=== PATIENT | male | born 1955 ===

== ENCOUNTER 2017-01-12 13:50 | Emergency (ER) | payer MEDICARE ==
[2017-01-12 13:57] VITALS: BP 92/53; PULSE 72; RESP 16; TEMP 98.3; O2SAT 100
--- NOTE | 2017-01-12 15:38 | ED PDOC ---
HPI: Altered Mental Status Time Seen by Provider: 01/12/17 14:07 Chief Complaint (Nursing): Weakness/Neurological Deficit History Per: Patient, Family History/Exam Limitations: Clinical Condition Onset/Duration Of Symptoms: Gradual (today) Onset Of Symptoms: Cannot Confirm Onset Current Symptoms Are (Timing): Still Present Description Of Symptoms: Not At Baseline Usual Baseline: Alert Confused, Non-verbal, Amb W/Assist Exacerbating Factor(s): Unknown Use Of Anticoag/Antiplatlets: No Additional History Per: Patient, Family Additional Complaint(s): To ED via BLS for evaluation of generalized weakness. Patient with history of Parkinson's. As per EMS, family stated patient is normally able to ambulate but unable today. long hx of chronic parkinsons Past Medical History Reviewed: Historical Data, Nursing Documentation, Vital Signs Vital Signs: Last Vital Signs Temp 98.3 F 01/12/17 13:52 Pulse 72 01/12/17 13:52 Resp 16 01/12/17 13:52 BP 92/53 L 01/12/17 13:52 Pulse Ox 100 01/12/17 13:52 - Medical History PMH: Parkinson's Disease - Family History Family History: States: Unknown Family Hx - Living Arrangements Living Arrangements: With Family - Social History Current smoker - smoking cessation education provided: No - Home Medications Home Medications: Ambulatory Orders Medication Instructions Recorded Carbidopa/Levodopa 1 tab PO QID 08/24/16 [Carbidopa/Levodopa 25 mg-250 mg] Clonazepam [Klonopin] 0.5 mg PO BID 08/24/16 Mv,Min10/Folic Acid/D3/Ala/Lut 1 tab PO DAILY 08/24/16 [Strovite One Caplet] - Allergies Allergies/Adverse Reactions: Allergies Allergy/AdvReac Type Severity Reaction Status Date / Time No Known Allergies Allergy Verified 01/12/17 13:52 Review of Systems Review Of Systems: ROS cannot be obtained secondary to pt's inabilty to answer questions. Neurological: Positive for: Weakness Physical Exam - Reviewed Nursing Documentation Reviewed: Yes Vital Signs Reviewed: Yes - Physical Exam Appears: Positive for: Uncomfortable Head Exam: Positive for: ATRAUMATIC, NORMAL INSPECTION, NORMOCEPHALIC Skin: Positive for: Normal Color, Warm, Dry Eye Exam: Positive for: Normal appearance, EOMI, PERRL. Negative for: Periorbital swelling, Periorbital tenderness, Conjunctival injection ENT: Positive for: Pharynx Is (clear,mmm) Neck: Positive for: Normal, Painless ROM, Supple. Negative for: Decreased ROM, Limited ROM, Trachea Midline, Pain On Movement Of Neck Cardiovascular/Chest: Positive for: Regular Rate, Rhythm, Chest Non Tender. Negative for: Edema, Gallop, Murmur, Bradycardia, Tachycardia Respiratory: Positive for: Normal Breath Sounds. Negative for: Decreased Breath Sounds, Accessory Muscle Use, Crackles, Rales, Rhonchi, Stridor, Wheezing , Respiratory Distress Pulses-Radial (L): 2+ Pulses-Radial (R): 2+ Gastrointestinal/Abdominal: Positive for: Normal Exam, Bowel Sounds, Soft. Negative for: Tenderness Back: Positive for: Normal Inspection. Negative for: L CVA Tenderness, R CVA Tenderness, Vertebral Tenderness Extremity: Positive for: Normal ROM. Negative for: Tenderness, Pedal Edema, Calf Tenderness, Deformity, Swelling Neurologic/Psych: Positive for: Alert, assembler latches and springs II-XII, Motor/Sensory Deficits ( strength 5/5 in all extremities ). Negative for: Oriented, Aphasia, Facial Droop - Laboratory Results Result Diagrams: 01/12/17 15:10 01/12/17 15:10 - ECG ECG: Positive for: Interpreted By Mn ECG Rhythm: Positive for: Normal QRS, Normal ST Segment, Sinus Rhythm (rate of 80). Negative for: ST/T Changes O2 Sat by Pulse Oximetry: 100 Pulse Ox Interpretation: Normal - Radiology X-Ray: Interpreted by Mn X-Ray Interpretation: No Acute Disease - Progress ED Course And Treament: pt now ambulating throughout the ed. no compalints ct scan nml will d/c home to care of family Re-evaluation Time: 18:16 Condition: Improved Disposition - Clinical Impression Clinical Impression: Episode of generalized weakness Counseled Patient/Family Regarding: Studies Performed, Diagnosis, Need For Followup - Disposition Referrals: Kale Muniz MD [Family Provider] - (2 to 3 days) Disposition: Routine/Home Disposition Time: 18:22 Condition: GOOD Instructions: Weakness (ED)
[2017-01-12 15:43] LABS: BASO % 0.7 % (0.0-2.0); EOS # 0.1 K/uL (0.0-0.7); EOS % 1.3 % (0.0-4.0); HEMATOCRIT 27.6 % (35.0-51.0); LYMPH # 1.7 K/uL (1.0-4.3); LYMPH % 24.3 % (20.0-40.0); MEAN CELL VOLUME 79.6 fl (80.0-94.0); MEAN CORPUSCULAR HEMOGLOBIN 27.6 pg (27.0-31.0); MEAN CORPUSCULAR HGB CONC 34.7 g/dL (33.0-37.0); MEAN PLATELET VOLUME 11.7 fl (7.2-11.7); MONO # 0.4 K/uL (0.0-0.8); MONO % 6.3 % (0.0-10.0); NEUT # 4.6 K/uL (1.8-7.0); NEUT % 67.4 % (50.0-75.0); NRBC % 0.1 % (0.0-0.0); RED CELL DISTRIBUTION WIDTH 14.9 % (11.5-14.5); WHITE BLOOD COUNT 6.8 K/uL (4.8-10.8)
[2017-01-12 16:08] LABS: PARTIAL THROMBOPLASTIN TIME 29.4 Seconds (25.6-37.1)
[2017-01-12 16:29] LABS: ALB/GLOB RATIO 1.3 (1.0-2.1); ALCOHOL SERUM < 10 mg/dl (0-10); ALKALINE PHOSPHATASE 61 U/L (38-126); ALT/SGPT 25 U/L (21-72); AST/SGOT 28 U/L (17-59); BILIRUBIN,TOTAL 0.7 mg/dl (0.2-1.3); BLOOD UREA NITROGEN 23 mg/dl (9-20); CALCIUM 8.8 mg/dL (8.4-10.2); CARBON DIOXIDE 28 mmol/L (22-30); CHLORIDE 101 mmol/L (98-107); GFR AFRICAN-AMERICAN > 60; GLUCOSE,RANDOM 110 mg/dL (75-110); LIPASE 67 U/L (23-300); POTASSIUM 4.4 MMOL/L (3.6-5.0); SODIUM 141 mmol/l (132-148); TOTAL PROTEIN 7.5 G/DL (6.3-8.2)
[2017-01-12 17:08] LABS: RBC URINE 2 /hpf (0-3); URINE BILIRUBIN NEGATIVE (NEGATIVE); URINE BLOOD NEGATIVE (NEGATIVE); URINE COLOR YELLOW (YELLOW); URINE GLUCOSE (UA) NEG (Normal); URINE KETONE TRACE mg/dL (NEGATIVE); URINE LEUKOCYTE ESTERASE NEG Leu/uL (Negative); URINE PROTEIN 30 mg/dL (NEGATIVE); URINE UROBILINOGEN 0.2-1.0 mg/dL (0.2-1.0); WBC URINE 1 /hpf (0-5)
--- NOTE | 2017-01-12 17:50 | RAD ---
PROCEDURE: CHEST RADIOGRAPH, 1 VIEW HISTORY: ams COMPARISON: Comparison chest 08/24/2016 FINDINGS: LUNGS: Poor inspiration with low lung volumes, mild crowded bronchovascular markings and mild bibasilar atelectasis. There is a small elliptical shaped density right lung base measuring approximately 7 mm x 3 mm. This could represent vessel on end artifact and/or some discoid type atelectasis. Recommend repeat erect PA and lateral views with proper inspiration to confirm and exclude parenchymal nodule. Alternately, followup the CT scan would be more sensitive. . A discrepancy was placed in a physician tracking note for follow-up. PLEURA: No pneumothorax or pleural fluid seen. CARDIOVASCULAR: Normal. OSSEOUS STRUCTURES: No significant abnormalities. VISUALIZED UPPER ABDOMEN: Normal. OTHER FINDINGS: None. IMPRESSION: Poor inspiration with low lung volumes, mild crowded bronchovascular markings and mild bibasilar atelectasis. There is a small elliptical shaped density right lung base measuring approximately 7 mm x 3 mm. This could represent vessel on end artifact and/or some discoid type atelectasis. Recommend repeat erect PA and lateral views with proper inspiration to confirm and exclude parenchymal nodule. Alternately, followup the CT scan would be more sensitive. . A discrepancy was placed in a physician tracking note for follow-up.
--- NOTE | 2017-01-14 01:25 | CARD ---
APPROVED REPORT EKG Measurement Heart [id number] <Conclusion> Normal sinus rhythm Normal ECG
== END 2017-01-12 22:44 | disposition home or self-care (01) ==
LOC: H.ER 13:50
DX: G20 Parkinson's disease (principal); R53.1 Weakness
CPT/HCPCS: 71010; 80053; 81003; 83690; 84484; 85025; 85610; 85730; 87086; 93005; 99283; G0480

== ENCOUNTER 2017-04-19 14:07 | Emergency (ER) | payer MEDICARE ==
[2017-04-19 14:13] VITALS: TEMP 97.8
--- NOTE | 2017-04-19 14:49 | ED PDOC ---
Lower Extremity Pain/Injury Time Seen by Provider: 04/19/17 14:47 Chief Complaint (Nursing): Lower Extremity Problem/Injury Chief Complaint (Provider): lower extremity edema History Per: Patient (61 y/o male bedbound secondary to parkinson's disease here with complaint of lower extremity edema ongoing. Family has been unable to arrange for transport to Dr. Muniz (PCP) office. ) Past Medical History Reviewed: Historical Data, Nursing Documentation, Vital Signs Vital Signs: Last Vital Signs Temp 97.8 F 04/19/17 14:11 Pulse 86 04/19/17 14:11 Resp 18 04/19/17 14:11 BP 112/69 04/19/17 14:11 Pulse Ox 98 04/19/17 14:11 - Medical History PMH: Parkinson's Disease - Family History Family History: States: Unknown Family Hx - Home Medications Home Medications: Ambulatory Orders Medication Instructions Recorded Carbidopa/Levodopa 1 tab PO QID 08/24/16 [Carbidopa/Levodopa 25 mg-250 mg] Clonazepam [Klonopin] 0.5 mg PO BID PRN 08/24/16 - Allergies Allergies/Adverse Reactions: Allergies Allergy/AdvReac Type Severity Reaction Status Date / Time No Known Allergies Allergy Verified 01/12/17 13:52 Review of Systems ROS Statement: Except As Marked, All Systems Reviewed And Found Negative Musculoskeletal: Positive for: Leg Pain Physical Exam - Reviewed Nursing Documentation Reviewed: Yes Vital Signs Reviewed: Yes - Physical Exam Appears: Positive for: Well, Non-toxic, No Acute Distress Head Exam: Positive for: ATRAUMATIC, NORMAL INSPECTION, NORMOCEPHALIC Skin: Positive for: Normal Color, Warm, DRY Eye Exam: Positive for: EOMI, Normal appearance, PERRL ENT: Positive for: Normal ENT Inspection Neck: Positive for: Normal, Painless ROM Cardiovascular/Chest: Positive for: Regular Rate, Rhythm Respiratory: Positive for: CNT, Normal Breath Sounds Gastrointestinal/Abdominal: Positive for: Normal Exam, Bowel Sounds, Soft Back: Positive for: Normal Inspection Extremity: Positive for: Normal ROM, Pedal Edema, Swelling Neurologic/Psych: Positive for: Alert, Oriented - Laboratory Results Result Diagrams: 04/19/17 15:16 04/19/17 15:16 - ECG ECG Rhythm: Positive for: Sinus Rhythm (nsr 89bpm no ectopy; no acute changes) O2 Sat by Pulse Oximetry: 98 - Radiology X-Ray: Viewed By Me (nad) - Progress ED Course And Treament: d/w dr. muniz requests hospitalist admission for evaluation of symptoms d/w Dr. Hightower. Will diuresis patient during obs stay in hospital. Disposition - Clinical Impression Clinical Impression: Lower extremity edema, Fluid overload - Patient ED Disposition Is Patient to be Admitted: Yes - Disposition Disposition Time: 17:42 Condition: FAIR Forms: [facility] (Ukrainian) - Pt Status Changed To: Hospital Disposition Of: Observation
[2017-04-19 15:40] LABS: BASO % 0.5 % (0.0-2.0); EOS # 0.1 K/uL (0.0-0.7); EOS % 1.2 % (0.0-4.0); HEMATOCRIT 31.5 % (35.0-51.0); LYMPH # 1.5 K/uL (1.0-4.3); LYMPH % 18.8 % (20.0-40.0); MEAN CORPUSCULAR HEMOGLOBIN 25.3 pg (27.0-31.0); MEAN CORPUSCULAR HGB CONC 33.3 g/dL (33.0-37.0); MONO % 12.3 % (0.0-10.0); NEUT # 5.3 K/uL (1.8-7.0); NEUT % 67.2 % (50.0-75.0); NRBC % 0.4 % (0.0-0.0); RED CELL DISTRIBUTION WIDTH 17.8 % (11.5-14.5); WHITE BLOOD COUNT 7.9 K/uL (4.8-10.8)
[2017-04-19 16:02] LABS: ALKALINE PHOSPHATASE 105 U/L (38-126); ALT/SGPT 40 U/L (21-72); AST/SGOT 51 U/L (17-59); BLOOD UREA NITROGEN 16 mg/dl (9-20); CALCIUM 9.1 mg/dL (8.4-10.2); CARBON DIOXIDE 27 mmol/L (22-30); CHLORIDE 100 mmol/L (98-107); GFR AFRICAN-AMERICAN > 60; GLUCOSE,RANDOM 71 mg/dL (75-110); POTASSIUM 4.1 MMOL/L (3.6-5.0); SODIUM 143 mmol/l (132-148); TOTAL PROTEIN 7.5 G/DL (6.3-8.2)
--- NOTE | 2017-04-19 16:36 | RAD ---
HISTORY: routine COMPARISON: No prior. FINDINGS: LUNGS: Diminished history volume. No acute infiltrate bilaterally nevertheless. PLEURA: No significant pleural effusion identified, no pneumothorax apparent. CARDIOVASCULAR: Cardiac silhouette not significantly changed in size. OSSEOUS STRUCTURES: No significant abnormalities. VISUALIZED UPPER ABDOMEN: Normal. OTHER FINDINGS: None. IMPRESSION: Diminished inspiratory effort. No acute infiltrate or pleural effusion bilaterally.
[2017-04-19 16:57] VITALS: RESP 16
--- NOTE | 2017-04-19 17:38 | US ---
PROCEDURE: Bilateral lower extremity venous duplex Doppler. HISTORY: r/o dvt COMPARISON: None available. TECHNIQUE: Bilateral common femoral, superficial femoral, popliteal and posterior tibial veins were evaluated. Flow was assessed with color Doppler, compressibility, assessment of phasic flow and augmentation response. FINDINGS: COMMON FEMORAL VEIN: Right CFV: Unremarkable. Left CFV: Unremarkable. SUPERFICIAL FEMORAL VEIN: Right SFV: Unremarkable. Left SFV: Unremarkable. POPLITEAL VEIN: Right Popliteal: Unremarkable. Left Popliteal: Unremarkable. POSTERIOR TIBIAL VEIN: Right PTV: Unremarkable. Left PTV: Unremarkable. OTHER FINDINGS: None. IMPRESSION: No evidence of deep venous thrombosis. .
--- NOTE | 2017-04-19 19:18 | CP.PCM.CON ---
History of Present Illness - History of Present Illness History of Present Illness: 61 y/o male with PMH Parkinsonism, bed bound and aphasic brought to ER by EMS at his sisters request for evaluation of lower extremity edema. As per sister patient has been bed bound for more than 2 months , has poor PO intake. Sister is the primary caregiver.The family has not been able to arrange transportation for patient to be seen at PMD's office. In ER patient noticed to be hemodynamically stable in NAD, aphasic BP 118/82 HR 16 O2Sat 1005 in RA T 97.8 HR 81 Physical exam consistent with cachetic male, aphasic , in NAD Lungs ; clear no rales no wheezing CVs ; s1 + s2 + RRR , no JVD Abd ; soft , Nt/Nd Bs + Ext ; bilateral Le edema 2 = pitting , pulses present Neuro ; awake, alert , aphasic,moves all 4 extremities labs show no abnormalities except Hgb 10.5 normal renal fxn , albumin, Trop and LFT-s CXR - wnl EKG showed no acute abnormality Venous doppler negative for DVT Dx: Most likely LE edema secondary to venous stasis Will be given Lasix IV in ER and start Lasix 20 mg Po every other day patient would like to go home and sister is in agreement to take him home patient is hemodynamically stable, afebrile with no sings of infection He can be discharged home with sister He will benefit from home health services like visiting nurse , PT and home health aid . Will refer patient to [facility] services patient is stable to be discharged home Past Patient History - Past Social History Smoking Status: Never Smoked - NEUROLOGICAL Hx Parkinson's Disease: Yes - PSYCHIATRIC Hx Substance Use: No - SURGICAL HISTORY Hx Surgeries: No - ANESTHESIA Hx Anesthesia: No Meds Home Medications: Home Medication List Medication Instructions Recorded Confirmed Type Furosemide [Lasix] 20 mg PO QOTHERDAY #7 tablet 04/19/17 Rx Allergies/Adverse Reactions: Allergies Allergy/AdvReac Type Severity Reaction Status Date / Time No Known Allergies Allergy Verified 01/12/17 13:52 - Medications Medications: Current Medications Furosemide (Lasix) 20 mg IV STAT STA Stop: 04/19/17 18:59 Results - Vital Signs Recent Vital Signs: Last Vital Signs Temp 97.8 F 04/19/17 14:11 Pulse 81 04/19/17 16:56 Resp 16 04/19/17 16:56 BP 118/82 04/19/17 16:56 Pulse Ox 98 04/19/17 17:44 - Labs Result Diagrams: 04/19/17 15:16 04/19/17 15:16 Labs: Laboratory Results - last 24 hr 04/19/17 04/19/17 15:16 15:16 WBC 7.9 RBC 4.15 L Hgb 10.5 L Hct 31.5 L MCV 76.0 L D MCH 25.3 L MCHC 33.3 RDW 17.8 H Plt Count 159 MPV 11.0 Neut % (Auto) 67.2 Lymph % (Auto) 18.8 L [place] % (Auto) 12.3 H Eos % (Auto) 1.2 Baso % (Auto) 0.5 Neut # 5.3 Lymph # 1.5 [place] # 1.0 H Eos # 0.1 Baso # 0.0 Sodium 143 Potassium 4.1 Chloride 100 Carbon Dioxide 27 Anion Gap 21 H BUN 16 Creatinine 0.9 Est GFR ( Amer) > 60 Est GFR (Non-Af Amer) > 60 Random Glucose 71 L Calcium 9.1 Total Bilirubin 1.0 AST 51 ALT 40 Alkaline Phosphatase 105 Troponin I < 0.0120 NT-Pro-B Natriuret Pep 117 Total Protein 7.5 Albumin 3.8 Globulin 3.7 Albumin/Globulin Ratio 1.0
[2017-04-19 19:27] VITALS: BP 151/93
[2017-04-19 19:28] VITALS: PULSE 88; O2SAT 100
--- NOTE | 2017-04-20 12:10 | CARD ---
APPROVED REPORT EKG Measurement Heart [id number] ID [id number] <Conclusion> Normal sinus rhythm Normal ECG
== END 2017-04-19 21:00 | disposition home or self-care (01) ==
LOC: H.ER 14:07 → H.ERHOLD 17:44 → UNDOADMOB 17:44 → H.ER 21:00
DX: R60.0 Localized edema (principal); G20 Parkinson's disease
CPT/HCPCS: 71010; 80053; 83880; 84484; 85025; 93005; 93970; 96374; 99284; J1940